=== PATIENT | male | born 1980 | race African-American/Black ===

== ENCOUNTER 2022-06-27 19:00 | Emergency (ER) | payer OTHER, SELFPAY ==
--- NOTE | 2022-06-27 19:03 | ED.EAR ---
HPI - Ear Problem General Chief complaint: Ear Stated complaint: lt earache Time Seen by Provider: 06/27/22 19:03 Source: patient Mode of arrival: ambulatory Limitations: no limitations History of Present Illness HPI Narrative: Patrick is a 41-year-old male patient presenting to the clinic today with complaints of a left ear pain times 3 days. He reports no known fever chills. Has had a runny nose and some congestion Related Data Allergies Allergy/AdvReac Type Severity Reaction Status Date / Time Sulfa (Sulfonamide Allergy Severe Anaphylactic Verified 06/27/22 19:15 Antibiotics) Shock Review of Systems Review of Systems: Pertinent positives per HPI. Patient denies any fever, chills, rash, headache, visual changes, dizziness, cough, shortness of breath, chest pain, palpitations, nausea, vomiting, diarrhea, constipation, abdominal pain, or any urinary issues. PMFSH Comments At the time of my signature, I reviewed and agree with the nursing past medical, surgical, social, and family history. There is no relevant family history pertinent to the patient complaint. Exam Narrative: General: Well-developed, well nourished, in no apparent distress Head: Normocephalic, atraumatic Eyes: Pupils equally round and reactive to light bilaterally, EOM intact, sclera and conjunctive clear, no discharge, lids normal Ears: Right tMs intact and clear, left TM intact, mild bulging, dull, ear canals clear, no drainage, grossly hearing normal. Nose: Nares patent, clear nasal discharge, no inflammation, no sinus tenderness. Mouth: Oral pharynx without lesions or masses, good dentition, MMM. Neck: Supple, trachea midline, no enlargement of anterior or posterior cervical nodes, no thyroid masses or goiter palpable. Cardio: Regular rate and rhythm, s1 and s2 normal, no murmur appreciated. Resp: Clear to auscultation bilaterally, no rhonchi, rales, wheezing or rubs Course Course Emergency Course: Portions of this record may have been created with voice recognition software. Level of Care: Express Care Visit Vital Signs Vital signs: Vital Signs Temperature 36.7 C 06/27/22 19:14 Pulse Rate 88 06/27/22 19:14 Respiratory Rate 20 06/27/22 19:14 Blood Pressure 152/99 H 06/27/22 19:14 Pulse Oximetry 100 06/27/22 19:14 Oxygen Delivery Room Air 06/27/22 19:14 Temperature 36.7 C 06/27/22 19:14 Pulse Rate 88 06/27/22 19:14 Respiratory Rate 20 06/27/22 19:14 Blood Pressure 152/99 H 06/27/22 19:14 Pulse Oximetry 100 06/27/22 19:14 Oxygen Delivery Room Air 06/27/22 19:14 Vital signs reviewed Medical Decision Making MDM Narrative Medical decision making narrative: At the time of visit patient is resting comfortably on exam table. I suspect patient has eustachian tube dysfunction. Prescription for prednisone was sent to pharmacy. Supportive measures were discussed with the patient he voiced understanding discharge instructions agrees to treatment plan. Differential Diagnosis Differential Diagnosis: Otitis media, otitis externa, eustachian tube dysfunction, cerumen impaction, upper respiratory infection Vital Signs Vital Signs: Vital Signs Temperature 36.7 C 06/27/22 19:14 Pulse Rate 88 06/27/22 19:14 Respiratory Rate 20 06/27/22 19:14 Blood Pressure 152/99 H 06/27/22 19:14 Pulse Oximetry 100 06/27/22 19:14 Oxygen Delivery Room Air 06/27/22 19:14 Temperature 36.7 C 06/27/22 19:14 Pulse Rate 88 06/27/22 19:14 Respiratory Rate 20 06/27/22 19:14 Blood Pressure 152/99 H 06/27/22 19:14 Pulse Oximetry 100 06/27/22 19:14 Oxygen Delivery Room Air 06/27/22 19:14 Discharge Plan Discharge Clinical Impression: Acute dysfunction of left eustachian tube Patient Disposition: Home, Self-Care Condition: Stable Instructions: Antibiotic Form, Earache (ED) Additional Instructions: Take prescription medications only as prescribed-prednisone In
[2022-06-27 19:14] VITALS: BP 152/99; PULSE 88; RESP 20; TEMP 36.7; O2SAT 100
== END 2022-06-27 19:37 | disposition home or self-care (01) ==
PROVIDERS: Emergency Provider Nurse Practitioner Family
DX: H69.92 Unspecified Eustachian tube disorder, left ear (principal)
CPT/HCPCS: 99213; G0463